=== PATIENT | male | born 1985 ===

== ENCOUNTER → 2018-07-30 18:55 | Outpatient (REF) | payer OTHER, SELFPAY ==
[2018-07-30 19:09] LABS: Add Manual Diff / Slide Review NO; Basophils Percent Auto 0.8 % (0-2); Eosinophils Percent Auto 3.2 % (2-4); Hematocrit 44.4 % (41-53); Lymphocytes Percent Auto 42.2 % (25-40); Mean Corpuscular HGB Conc 33.7 % (30-36); Mean Corpuscular Hemoglobin 30.9 PG (26-34); Mean Corpuscular Volume 91.8 fL (80-100); Monocytes Percent Auto 9.8 % (3-14); Neutrophils Absolute Auto 2000 /uL (3000-5900); Platelet Count 234 X10^3/uL (150-400); Red Blood Cell Count 4.84 X10^6/uL (4.5-5.9); Red Cell Distribution Width 12.5 % (11.6-14.8); White Blood Cell Count 4.4 X10^3/uL (4.5-11.0)
[2018-07-30 19:16] LABS: Alanine Aminotransferase 40 IU/L (21-72); Albumin 4.4 g/dL (3.5-5.0); Albumin Globulin Ratio 1.8 (1.0-2.8); Alkaline Phosphatase 62 U/L (38-126); Aspartate Aminotransferase 43 IU/L (17-59); Bilirubin Total 0.8 mg/dL (0.2-1.3); Blood Urea Nitrogen 18 mg/dL (9-20); Calcium 9.6 mg/dL (8.4-10.2); Carbon Dioxide 27 mmol/L (22-32); Chloride 101 mmol/L (98-107); Cholesterol 161 mg/dL (140-199); Estimated Glomerular Filt Rate > 60.0 mL/min (>60); Globulin 2.4 g/dL (1.7-4.1); Glucose 86 mg/dL (70-100); HDL Cholesterol 67 mg/dL (40-60); HEMOLYSIS < 15 (0-50); LDL Cholesterol Calculated 77 mg/dL (<100); Potassium 4.5 mmol/L (3.4-5.1); Sodium 140 mmol/L (137-145); Total Protein 6.8 g/dL (6.3-8.2); Triglycerides 86 mg/dL (35-150)
[2018-08-01 14:52] LABS: PSA, Total 0.4 ng/mL (< 4.1)
[2018-08-01 16:50] LABS: Estradiol 23 pg/mL (< 40)
[2018-08-01 21:19] LABS: Testosterone, Free 0.88 ng/dL (0.87-5.47)
== END ==
LOC: LAB 18:55
PROVIDERS: Visit Provider Nurse Practitioner Acute Care
DX: Z79.890 Hormone replacement therapy (principal)
CPT/HCPCS: 80053; 80061; 82670; 84153; 84154; 84402; 85025

== ENCOUNTER → 2019-03-24 18:38 | Outpatient (ROUT) | payer OTHER, SELFPAY ==
[2019-03-24 19:07] LABS: Hematocrit 51.9 % (41-53); Hemoglobin 16.4 g/dL (13.5-17.5); Mean Corpuscular HGB Conc 31.5 % (30-36); Mean Corpuscular Hemoglobin 31.3 PG (26-34); Mean Corpuscular Volume 99.4 fL (80-100); Platelet Count 242 X10^3/uL (150-400); Red Blood Cell Count 5.22 X10^6/uL (4.5-5.9); Red Cell Distribution Width 15.1 % (11.6-14.8); White Blood Cell Count 4.6 X10^3/uL (4.5-11.0)
[2019-03-24 19:37] LABS: Alanine Aminotransferase 37 IU/L (21-72); Albumin 4.4 g/dL (3.5-5.0); Albumin Globulin Ratio 1.6 (1.0-2.8); Alkaline Phosphatase 63 U/L (38-126); Aspartate Aminotransferase 44 IU/L (17-59); BUN Creatinine Ratio 14.2 (6-22); Bilirubin Total 0.9 mg/dL (0.2-1.3); Blood Urea Nitrogen 17 mg/dL (9-20); Calcium 10.3 mg/dL (8.4-10.2); Carbon Dioxide 23 mmol/L (22-32); Chloride 103 mmol/L (98-107); Estimated Glomerular Filt Rate > 60.0 mL/min (>60); Globulin 2.8 g/dL (1.7-4.1); HEMOLYSIS < 15 (0-50); Sodium 139 mmol/L (137-145); Total Protein 7.2 g/dL (6.3-8.2)
[2019-03-24 19:44] LABS: Potassium 5.1 mmol/L (3.4-5.1)
[2019-03-24 20:37] LABS: Estradiol, Total 14.3 pg/mL
[2019-03-31 16:55] LABS: Testosterone, Free 0.62 ng/dL (0.87-5.47)
== END ==
PROVIDERS: Visit Provider Nurse Practitioner Acute Care
DX: Z79.890 Hormone replacement therapy (principal)
CPT/HCPCS: 80053; 82670; 84402; 85027